=== PATIENT | male | born 1985 | race Caucasian/White ===

== ENCOUNTER 2017-06-01 09:32 | Emergency (ER) | payer SELFPAY ==
[2017-06-01 10:00] VITALS: BP 148/75; PULSE 67; RESP 20; TEMP 37.9; O2SAT 100; BMI 25.1
[2017-06-01 10:06] LABS: UTC Influenza A Antigen Negative (Negative); UTC Influenza B Antigen Negative (Negative)
--- NOTE | 2017-06-01 10:07 | HMH.EDUTC ---
[facility] – [place] Disposition Clinical Impression: Viral illness Disposition: Home, Self-Care Condition on Discharge: Good Instructions: DI for Viral Gastroenteritis -- Adult, DI for Influenza -- Adult Additional Instructions: No sign of bacterial infection. Likely viral. Virus can take 7-14 days to run their course. With your symptoms just started, hard to know if this is the onset of possibly the flu or the stomach virus. I have educated you about both. you will have to see how your symptoms are over the next 24-48 hours to know for sure. If you would like to be retested for the flu due to a possibility of a false negative today with symptoms just starting, follow up tomorrow for repeat testing. Flu * Lots of rest * Increase fluids, water, gatorade, powerade, pedialyte if /toddler/child * Monitor Temp. Tylenol every 4 hours as needed no more then 5 times a day or 4000mg in 24 hours and/or ibuprofen every 6 hours as needed no more then 3200mg in 24 hours (as long as your primary care doctor has told you that it is ok to take both) for fever/aches/pain. ER if fever no less than 101 despite tylenol and Ibuprofen * You (or your child) are contagious until no fever, aches, chills x 24 hours without medication for symptoms. Follow up IMMEDIATELY for new or worsening symptoms, improvement followed by suddenly feeling worse OR no noticeable improvement over the next 48-72 hours. 911 for difficulty breathing Stomach Virus * Monitor Temp. Low grade fevers are common but higher ones could be indicative of either the flu or something else. Be sure to follow up if your symptoms are not consistent with what we discussed. * Follow up immediately for new or worsening symptoms OR no noticeable improvement over the next 48 hours. * Increase fluids. Water, gatorade, powerade, juice OR pedialyte with limited formula/dairy in children. * No food is ok as long as you or your child is drinking. Once ready to eat, start bland. bananas, rice, applesauce, toast * Contagious until no diarrhea, vomiting, fever x 24 hours without medication * Avoid anti-diarrheals unless told otherwise. Best to let the virus run its course. * Zofran as needed every 8 hours for the continued nausea Follow up IMMEDIATELY for new or worsening symptoms OR no noticeable improvement over the next 48 hours. Prescriptions: Ondansetron [Zofran 4mg ODT] 4 mg PO Q8H PRN #10 tab.rapdis PRN Reason: Nausea And Vomiting Referrals: Johan Samaniego MD [Primary Care Provider] - Time of Disposition: 10:38 Medical Decision Making Vital Signs: 06/01/17 10:00 Temperature 100.2 F H Temperature Source Temporal Artery Scan Pulse Rate [Brachial] 67 Respiratory Rate 20 Blood Pressure [Right Arm] 148/75 Blood Pressure Mean [Right Arm] 99 Blood Pressure Source [Right Arm] Automatic Cuff Blood Pressure Position [Right Arm] Sitting 02 Sat by Pulse Oximetry 100 Oxygen Delivery Method Room Air - Lab Data Lab Results 06/01/17 10:04: Influenza Type A Ag Negative, Influenza Type B Ag Negative - Denny Inquiry Pt receiving controlled substance: No [facility] [place] HPI - General Stated complaint: poss flu Time Seen by Provider: 06/01/17 10:25 Mode of Arrival: Ambulatory Source of Information: Patient Limitations: No Limitations Description of Symptoms (Recalled from Triage Doc. by RN): VOMITING/FEVER/COUGH/CONGESTION HEENT Symptoms (Recalled from RN notes): Yes Resp Symptoms (Recalled from RN notes): Yes Skin Symptoms (Recalled from RN notes): No MS Symptoms (Recalled from RN notes): No Functional Status (Recalled from RN notes): INDEPENDENT - History of Present Illness Provider Complaint: c/o bodyaches, chills, rhinorrhea, nonprod cough, nausea and vomiting starting suddenly last night around 6pm. Hasn't taken or tried anything for symptoms. Has not had flu vaccine but worried he might have the flu. 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
--- NOTE | 2017-06-01 10:10 | ED_ITS ---
[facility] – [place], [place] Disposition Clinical Impression: Viral illness Disposition: Home, Self-Care Condition on Discharge: Good Instructions: DI for Viral Gastroenteritis -- Adult, DI for Influenza -- Adult Additional Instructions: No sign of bacterial infection. Likely viral. Virus can take 7-14 days to run their course. With your symptoms just started, hard to know if this is the onset of possibly the flu or the stomach virus. I have educated you about both. you will have to see how your symptoms are over the next 24-48 hours to know for sure. If you would like to be retested for the flu due to a possibility of a false negative today with symptoms just starting, follow up tomorrow for repeat testing. Flu * Lots of rest * Increase fluids, water, gatorade, powerade, pedialyte if /toddler/child * Monitor Temp. Tylenol every 4 hours as needed no more then 5 times a day or 4000mg in 24 hours and/or ibuprofen every 6 hours as needed no more then 3200mg in 24 hours (as long as your primary care doctor has told you that it is ok to take both) for fever/aches/pain. ER if fever no less than 101 despite tylenol and Ibuprofen * You (or your child) are contagious until no fever, aches, chills x 24 hours without medication for symptoms. Follow up IMMEDIATELY for new or worsening symptoms, improvement followed by suddenly feeling worse OR no noticeable improvement over the next 48-72 hours. 911 for difficulty breathing Stomach Virus * Monitor Temp. Low grade fevers are common but higher ones could be indicative of either the flu or something else. Be sure to follow up if your symptoms are not consistent with what we discussed. * Follow up immediately for new or worsening symptoms OR no noticeable improvement over the next 48 hours. * Increase fluids. Water, gatorade, powerade, juice OR pedialyte with limited formula/dairy in children. * No food is ok as long as you or your child is drinking. Once ready to eat, start bland. bananas, rice, applesauce, toast * Contagious until no diarrhea, vomiting, fever x 24 hours without medication * Avoid anti-diarrheals unless told otherwise. Best to let the virus run its course. * Zofran as needed every 8 hours for the continued nausea Follow up IMMEDIATELY for new or worsening symptoms OR no noticeable improvement over the next 48 hours. Prescriptions: Ondansetron [Zofran 4mg ODT] 4 mg PO Q8H PRN #10 tab.rapdis PRN Reason: Nausea And Vomiting Referrals: Johan Samaniego MD [Primary Care Provider] - Time of Disposition: 10:38 Medical Decision Making Vital Signs: 06/01/17 10:00 Temperature 100.2 F H Temperature Source Temporal Artery Scan Pulse Rate [Brachial] 67 Respiratory Rate 20 Blood Pressure [Right Arm] 148/75 Blood Pressure Mean [Right Arm] 99 Blood Pressure Source [Right Arm] Automatic Cuff Blood Pressure Position [Right Arm] Sitting 02 Sat by Pulse Oximetry 100 Oxygen Delivery Method Room Air - Lab Data Lab Results 06/01/17 10:04: Influenza Type A Ag Negative, Influenza Type B Ag Negative - Denny Inquiry Pt receiving controlled substance: No [facility] – [place], [place] HPI - General Stated complaint: poss flu Time Seen by Provider: 06/01/17 10:25 Mode of Arrival: Ambulatory Source of Information: Patient Limitations: No Limitations Description of Symptoms (Recalled from Triage Doc. by RN): VOMITING/FEVER/COUGH/ CONGESTION HEENT Symptoms (Recalled from RN notes): Yes Resp Symptoms (Recalled from RN notes): Yes Skin Symptoms (Recal
== END 2017-06-01 10:46 | disposition home or self-care (01) ==
PROVIDERS: Emergency Provider Nurse Practitioner Family; Family Provider Emergency Medicine; PCP Emergency Medicine
DX: B34.9 Viral infection, unspecified (principal); F17.210 Nicotine dependence, cigarettes, uncomplicated
CPT/HCPCS: 87276; 87804; 99202

== ENCOUNTER 2022-08-03 19:25 | Emergency (ER) | payer OTHER, SELFPAY ==
[2022-08-03 20:00] VITALS: BP 125/63; PULSE 78; RESP 18; TEMP 36.9; O2SAT 98; BMI 25.8
--- NOTE | 2022-08-03 20:05 | EXP.UTC ---
Discharge Plan Disposition Patient Disposition: Home, Self-Care Condition: Good Prescriptions Prescriptions: New cyclobenzaprine 10 mg Tablet 10 mg PO BID PRN (Reason: Muscle Spasm) Qty: 20 0RF ibuprofen [IBU] 800 mg tablet 800 mg PO Q8HP PRN (Reason: Moderate Pain) Qty: 30 0RF Referrals Follow up/Referrals: Shawn Perez MD [Primary Care Provider] - See instructions Activity Restrictions/Add. Instructions Additional Instructions/Restrictions: Go home and rest. No heavy lifting. No twisting for the next few days. Take the oral medications as directed. The muscle relaxer (cyclobenzaprine--Flexeril) will make you drowsy, so don't drive or operate heavy machinery after taking it. Follow up with your regular doctor. GO TO THE ER FOR ANY WORSENING SYMPTOMS OR CONCERN, ESPECIALLY BOWEL OR BLADDER ISSUES, SADDLE AREA NUMBNESS, FEVER, ETC Clinical Impressions Clinical Impression: Muscle strain Instructions Patient Instructions: Muscle Strain Discharge ED Provider: Candelario Arreola [facility] General Stated complaint: back pain, sore throat Time Seen by Provider: 08/03/22 20:04 Related Data Previous Rx's Medication Instructions Recorded cyclobenzaprine 10 mg tablet 10 mg PO BID PRN Muscle Spasm #20 08/03/22 tabs ibuprofen 800 mg tablet (IBU) 800 mg PO Q8HP PRN Moderate Pain 08/03/22 #30 tabs Allergies Allergy/AdvReac Type Severity Reaction Status Date / Time No Known Allergies Allergy Verified 03/07/21 11:33 [facility] Disclaimer: The information contained in this section may have been updated after the patient was seen, as this information can be updated by other users. Social History Smoking Status: Current every day smoker tobacco type: cigarettes alcohol intake: never current occupational status: other Travel in the last 8 weeks: Inside the [place] ([place], [place]) ROS Obtained: Yes All systems reviewed & no additional complaints except as documented Constitutional Constitutional: Denies chills and Denies fever(s) Integumentary/Breasts Skin/Breast: Denies redness, Denies rash and Denies wounds Neurologic Neurologic: Denies paresthesias Physical Exam General General appearance: alert and in no apparent distress Head Head exam: atraumatic, normocephalic and normal inspection Eye Eye exam: Present normal appearance, PERRL and EOMI ENT ENT exam: Present normal exam, normal oropharynx, mucous membranes moist, TM's normal bilaterally and normal external ear exam Neck Neck exam: Present normal inspection, full ROM and trachea midline; Absent meningismus or lymphadenopathy Chest Chest inspection: Present normal inspection and symmetric chest wall rise; Absent tenderness Respiratory Respiratory exam: Present normal lung sounds bilaterally; Absent respiratory distress Cardiovascular Cardiovascular exam: Present regular rate and normal rhythm; Absent JVD Abdominal Exam Abdominal exam: Present soft and normal bowel sounds; Absent distention, tenderness or guarding Extremities Exam Extremities exam: Present normal inspection, full ROM and normal capillary refill; Absent calf tenderness Back Exam Back exam: Present normal inspection; Absent tenderness Neurological Exam Neurological exam: Present alert and oriented X3 Psychiatric Psychiatric exam: Present normal affect and normal mood Skin Skin exam: Present warm, dry, intact and normal color Lymphatic Lymphatic Findings: no adenopathy Medical Decision Making Medical Records Medical records reviewed: No I reviewed the patient's medical records. Denny Inquiry Pt receiving controlled substance: No
[2022-08-03 20:16] LABS: Apearance,Urine Clear (Clear); Bilirubin,Urine Negative (Negative); Blood, Urine Negative (Negative); Color,Urine Yellow (Yellow); Glucose,Urine (UA) Negative (Negative); Ketones,Urine Negative (Negative); PH,Urine 6.5 (5.0-8.5); Protein,Urine Negative (Negative); Specific Gravity, Urine 1.025 (1.005-1.030); UTC Leukocyte Esterase,Urine Negative (Negative); UTC Nitrate,Urine Negative (Negative); Urobilinogen,Urine 1 EU/dl (0.2)
[2022-08-03 20:19] LABS: UTC Strep Screen (Rapid) Negative (Negative)
[2022-08-03 20:39] VITALS: BP 125/63; PULSE 78; RESP 18; TEMP 36.9; O2SAT 98
== END 2022-08-03 20:53 | disposition home or self-care (01) ==
PROVIDERS: Emergency Provider Nurse Practitioner Family; PCP Family Medicine
DX: M54.9 Dorsalgia, unspecified (principal); R07.0 Pain in throat; F17.210 Nicotine dependence, cigarettes, uncomplicated
CPT/HCPCS: 81003; 87880; 99204; 99212; G0463

== ENCOUNTER → 2022-09-01 16:45 | Outpatient (CLI) | payer OTHER, SELFPAY | PROVIDERS: PCP Family Medicine; Visit Provider Family Medicine | DX: G47.33 Obstructive sleep apnea (adult) (pediatric) (principal); G47.10 Hypersomnia, unspecified; R06.83 Snoring; E66.3 Overweight | CPT/HCPCS: G0399 ==